=== PATIENT | male | born 1950 | race Two or more races ===

== ENCOUNTER 2020-01-23 06:07 | Inpatient (IN) | payer MEDICARE, MEDICAID ==
[2020-01-23] VITALS (18 sets, daily range): BP systolic 112–137; BP diastolic 67–97
[~2020-01-23] VITALS: Ht 169 cm; Wt 88.5 kg
[~2020-01-23 06:07] MED LIST: DEXILANT60 MG ORAL; FLOMAX0.4 MG ORAL; KLONOPIN1 MG ORAL; ceFAZolin 1gm IVPB IVPB ONE; celeBREX 200mg Cap **SURGERY PATIENTS ONLY ORAL ONE; oxyCONTIN 10mg tab ORAL ONE
[2020-01-23] MEDS ORDERED: Lidocaine 1% MPF 10mg/ml 5ml ONE (06:59)
[2020-01-23] MEDS ORDERED: Ropivacaine 5mg/ml Vial 20ml INJ ONE (07:03)
--- NOTE | 2020-01-23 07:08 | Pre-Procedure Note/Attestation ---
Pre-Procedure Note/Attestation Complete Prior to Procedure Planned Procedure: left Procedure Narrative: left total knee arthroplasty Indications for Procedure Pre-Operative Diagnosis: left knee arthritis Attestation I attest that I discussed the nature of the procedure; its benefits; risks and complications; and alternatives (and the risks and benefits of such alternatives ), prior to the procedure, with the patient (or the patient's legal pharmaceutical specialty representative). I attest that, if there was a reasonable possibility of needing a blood transfusion, the patient (or the patient's legal pharmaceutical specialty representative) was given the [facility] standardized written summary, pursuant to the Corwin Binh Blood Safety Act ([place] Health and Safety Code # 1645, as amended). I attest that I re-evaluated the patient just prior to the surgery and that there has been no change in the patient's H&P, except as documented below: NONE Yoel Bailey MD Jan 23, 2020 07:08
[2020-01-23] MEDS ORDERED: Midazolam 2mg/2ml Inj ONE (07:13)
[2020-01-23] MEDS ORDERED: fentaNYL 100 mcg/2 mL IV ONE (07:13)
[2020-01-23] MEDS ORDERED: Bacitracin 50000 Units Vial ONE (07:30)
[2020-01-23] MEDS ORDERED: NeoSporin Gu Irrig 1ml Amp IRRIG ONE (07:30)
[2020-01-23] MEDS ORDERED: Tranexamic Acid 500 MG in NS 55 ML IV ONE (07:45)
--- NOTE | 2020-01-23 08:11 | Anethesia Preoperative Eval ---
Anesthesia Pre-op PMH/ROS General Date of Evaluation: Jan 23, 2020 Time of Evaluation: 08:06 Anesthesiologist: Cong ASA Score: ASA 3 Mallampati Score Class I : Soft palate, uvula, fauces, pillars visible Class II: Soft palate, uvula, fauces visible Class III: Soft palate, base of uvula visible Class IV: Only hard plate visible Mallampati Classification: Class II Surgeon: Lynn Diagnosis: L knee DJD Surgical Procedure: L knee arthroplasty Anesthesia History: none Family History: no anesthesia problems Allergies: Coded Allergies: No Known Allergies (Unverified , 01/19/20) Medications: see eMAR Patient NPO?: Yes Past Medical History Cardiovascular: Reports: HTN - borderline; Denies: CAD, UT, valve dz, arrhythmia, other Pulmonary: Denies: asthma, COPD, DANIELLE, other Gastrointestinal/Genitourinary: Reports: GERD, other - BPH s/p Sx, kidney stones; Denies: CRI, ESRD Neurologic/Psychiatric: Reports: depression/anxiety; Denies: dementia, CVA, TIA, other Endocrine: Denies: DM, hypothyroidism, steroids, other HEENT: Reports: cataract (L), cataract (R) - s/p Sx; Denies: glaucoma, ALGAACIQ (L), ALGAACIQ (R), other Hematology/Immune: Denies: anemia, DVT, bleeding disorder, other Musculoskeletal/Integumentary: Reports: OA, DJD; Denies: RA, DDD, edema, other Other: other - overweight PMH Narrative: as above PSxH Narrative: TUPR, lithotripsy Anesthesia Pre-op Phys. Exam Physician Exam Last Vital Signs Date Time Temp Pulse Resp B/P (MAP) Pulse Ox O2 Delivery O2 Flow Rate FiO2 01/23/20 06:54 Room Air 01/23/20 06:43 97.8 71 18 137/82 (100) 97 Constitutional: NAD Neurologic: CN 2-12 intact Cardiovascular: RRR, no M/R/G Respiratory: CTA Gastrointestinal: other - obesity Airway Exam Mallampati Score: Class II MO: limited Neck: stiff ROM: limited Teeth: missing Dentures: no upper, no lower Anesthesia Pre-op A/P Labs see chart Studies Pre-op Studies: EKG - SR Risk Assessment & Plan Assessment: ASA 2 Plan: SAB vs GA with femoral nerve block Status Change Before Surgery: No Pre-Antibiotics Drug: Ancef 2gr. Given Within 1 Hr of Incision: Yes Time Given: 08:50 Irving Gar MD Jan 23, 2020 08:11
[2020-01-23] MEDS ORDERED: Tranexamic Acid 100 ML IVPB ONE (08:30)
[2020-01-23] MEDS ORDERED: NS Irrig 1000ml ONE (08:30)
[2020-01-23] MEDS ORDERED: Sterile Water Irrig 1000ml IRRIG ONE (08:30)
[2020-01-23] MEDS ORDERED: LR 1000ml ONE (08:30)
[2020-01-23] MEDS ORDERED: LR 1000ml 1,000 ML IVLG SCH (09:29)
[2020-01-23] MEDS ORDERED: Ketorolac 30mg Inj IV PRN (09:30)
[2020-01-23] MEDS ORDERED: Acetaminophen (Non formulary) 100 ML IV ONE (09:30)
[2020-01-23] MEDS ORDERED: Hydromorphone 0.5mg/0.5ml inj IVP PRN (09:30)
[2020-01-23] MEDS ORDERED: Milk of Magnesia 30ml Ud ORAL PRN (09:45)
[2020-01-23] MEDS ORDERED: NS Irrig 2000ml IRRIG ONE (09:53)
--- NOTE | 2020-01-23 11:17 | Brief Operative Note ---
Immediate Post Operative Note Operative Note Chief Complaint: left knee pain Pre-op Diagnosis: left knee arthritis Procedure: left total knee arthroplasty Post-op Diagnosis: same as pre-op Findings: consistent w/pre-op dx studies Surgeon: md sydnee Web Operations Manager: bridget lubin Anesthesiologist: md katelyn Anesthesia: general Specimen: yes Complications: none Condition: stable Fluids: ns Estimated Blood Loss: minimal Drains: none Implant(s) used?: Yes - Yoel Pollack MD Jan 23, 2020 11:17
--- NOTE | 2020-01-23 11:32 | Immediate Post-Op Evaluation ---
Immediate Post-Op Evalulation Immediate Post-Op Evalulation Procedure: L knee arthroplasty Date of Evaluation: Jan 23, 2020 Time of Evaluation: 11:30 IV Fluids: 1200 Blood Products: none Estimated Blood Loss: 150 Urinary Output: 300 Blood Pressure Systolic: 125 Blood Pressure Diastolic: 82 Pulse Rate: 58 Respiratory Rate: 18 O2 Sat by Pulse Oximetry: 99 Temperature (Fahrenheit): 98.1 Pain Score (1-10): 1 Nausea: No Vomiting: No Complications none Patient Status: reacts, patent, none Hydration Status: adequate Irving Gar MD Jan 23, 2020 11:32
--- NOTE | 2020-01-23 12:40 | NUR ---
NURSE NOTES: PATIENT RECEIVED FROM PACU ON BED. AROUSABLE TO NAME. O2 ON VIA NC. RR EVENLY SPACED; SKIN W/D. NO RESPIRATORY DISTRESS NOTED. LEFT KNEE SURGICAL SITE C/D/I WITH KNEE IMMOBILIZER ON AND ICE PACK APPLIED. PATIENT IS ABLE TO FEEL SOME SENSATION UPON TOUCH TO LEFT GREAT TOE. BEDSIDE REPORT RECEIVED. BED IN LOW AND LOCKED POSITION. BED ALARM ACTIVATED. PATIENT ORIENTED TO ROOM. CALL LIGHT IN HAND.
[2020-01-23] MEDS: Docusate 100mg cap ORAL SCH ×2 (13:00→17:27)
[2020-01-23] MEDS: HYDROmorphone 1mg/ml Carpuject SUBQ PRN (13:30)
--- NOTE | 2020-01-23 14:35 | NUR ---
NURSE NOTES: PLACED CALL TO DR. GOMEZ OFFICE TO INFORM PATIENT ARRIVED TO 3 EAST TO ROOM 311-1. PER OFFICE, MD TO SEE PATIENT THIS EVENING AFTER OFFICE VISITS.
--- NOTE | 2020-01-23 14:38 | NUR ---
PT CPM SET UP NOTE Patient seen for LLE CPM setup per MD order 0-60 degrees flexion with good alignment. Patient instructed in use of control box. Patient rates L knee pain at 4/10, medicated earlier for pain. Lalitha PERRY notified. Will progress with OOB activities tomorrow.
[2020-01-23] MEDS: D5 1/2NS w/KCl 20mEq 1,000 ML IV SCH (15:20)
--- NOTE | 2020-01-23 15:44 | Operative Note - Dictated ---
DATE OF OPERATION: 01/23/2020 PREOPERATIVE DIAGNOSIS: Left knee end-stage arthritis. POSTOPERATIVE DIAGNOSIS: Left knee end-stage arthritis. PROCEDURE: Left total knee arthroplasty using Loree Triathlon System, size 5 cruciate-retaining Triathlon femur, size 5 tibial base plate, 9 mm ultra cross-linked poly and 31 mm all-poly patella component, all cemented. SURGEON: Yoel Bailey MD. METAL ROOFER: Rosalind Timmons PA-C. ANESTHESIOLOGIST: Irving Gar MD. ANESTHESIA: Spinal anesthesia combined with femoral nerve block for postoperative pain management. ESTIMATED BLOOD LOSS: Less than 20 mL. COMPLICATIONS: None. BRIEF HISTORY: The patient is a pleasant 70-year-old gentleman, who has had ongoing left knee end-stage arthritis. He has pain of the medial, lateral and at the patellofemoral joint. After he failed nonoperative treatment, he opted for surgical treatment. Risks and benefits of the surgery including infection, bleeding, neurovascular complication, possibility of continued pain, possible need for revision surgery, possible resection arthroplasty, possible need for further surgery down the line, DVT, PEs, stiffness, pain, loss of motion, and other complication was discussed and he understood and agreed to proceed with surgical intervention. OPERATIVE PROCEDURE: The patient was brought to the operating room table and was placed supine. All pressure points were well padded. Spinal anesthesia was induced and a femoral nerve block was performed. The left leg was prepped and draped in usual sterile fashion and a time-out was performed and tranexamic acid and preop antibiotics were given. The left leg was exsanguinated. Tourniquet was inflated to 275 mmHg. A standard anterior incision was made over the knee. The subcutaneous tissue was dissected and medial parapatellar arthrotomy was performed. The deep fibers of the MCL were released. The patella was then everted and knee was flexed. The fat pad was removed and ACL and PCL were resected. Intramedullary access into the femur was obtained. Using the intramedullary guide, 5-degree valgus distal femoral cut was performed. Once this was completed, sizing was performed and size 5 femur appeared to be the right size. The femoral cutting guide was placed in 3 degrees external rotation and anterior, posterior, and chamfer cuts were performed without any complication. Once this was completed, a trial femur was applied and slightly lateralized and peg holes were drilled. At this point, care was given to the tibia. An anterior tibial crest was palpated. The anatomical axis was recreated. A posterior slope of the tibia was recreated. The retractors were placed medial, caudally and posteriorly to protect the vital structure. Once this was completed, the anatomical axis and slope was recreated, 4 mm was taken off the most involved side, which was the medial side. Flexion-extension gap was checked and appeared to be perfect and stable at 90 degrees as well as in full extension. At this point, all wounds were thoroughly irrigated. Sizing of the tibia was performed and size 5 appeared to be the right size. The tibia was placed about 3 degrees external rotation and was drilled and punched. At this point, care was given to the patella. The patella was everted. The thickness of the patella was checked and appeared to be 24 mm. At this point, a freehand cut of the patella was performed and 14 mm was remaining. Measurements were made and 31 mm patellar trial component was applied, appeared to be a good fit. At this point, all trial components were applied and range of motion was checked. There was full extension, full flexion. There was excellent stability at 0, 30 degrees, 45 degrees, and 90 degrees of flexion. The range of motion was excellent. The patellofemoral tracking was great and there was no subluxation or tension on the lateral side. At this point, all trial components were removed and knee was thoroughly irrigated using copious amount of fluid. The cement was mixed and the knee was completely dried and cement was then applied on the tibia, femur and patella and all components were then applied and cemented in compression without any complication. All excess cement was removed. At this point, a 9 mm poly was then inserted and locked in without any complication. Prior to applying the poly, the knee was thoroughly irrigated and the tray was completely washed out and dried. Once the tibial poly was locked in onto the tray, the range of motion and stability of the patellofemoral tracking was checked and appeared to be excellent as described previously. The wounds were thoroughly irrigated using copious amount of fluid with Simpulse irrigation. The tourniquet was deflated and there was minimal bleeding that was stopped. The extensor mechanism was then closed using #1 Vicryl [id number] sutures. Subcutaneous tissue was closed using 2-0 Vicryl suture and skin was closed using 3-0 Monocryl suture. All lap counts and instrument counts were correct. The wound was closed using Dermabond and sterile dressing was applied. The patient was taken to recovery room in stable condition. Yoel Bailey M.D. DR: FORTINO JOB#: [id number] CC: MICHELLE
--- NOTE | 2020-01-23 16:10 | Diagnostic Imaging Report ---
Indications: Postoperative Technique: Two views of the left knee Comparison: None Findings: Two postoperative views of the left knee demonstrate total knee arthroplasty, good anatomic alignment of the prosthesis. . There is postsurgical soft tissue air. Impression: Postoperative left knee, no unusual features.
--- NOTE | 2020-01-23 16:50 | General Progress Note ---
Assessment/Plan Status: stable Assessment/Plan: 1. Osteoarthritis of left knee s/p Arthroplasty - cont pain management. 2. BPH - cont flomax 0.4 mg one po qhs and proscar 3. constipation - cont senna two po daily and milk of mag. 4. Anxiety disorder - cont clonazepam 2 mg one po qhs. Subjective Date patient seen: Jan 23, 2020 Time patient seen: 04:30 Constitutional: Reports: no symptoms HEENT: Reports: no symptoms Cardiovascular: Reports: no symptoms Respiratory: Reports: no symptoms Gastrointestinal/Abdominal: Reports: no symptoms Genitourinary: Reports: no symptoms Neurologic/Psychiatric: Reports: no symptoms Endocrine: Reports: no symptoms Hematologic/Lymphatic: Reports: no symptoms Allergies: Coded Allergies: No Known Allergies (Unverified , 01/19/20) Subjective He is s/p Lt knee artheroplasty today. his pain is controlled with pain meds today. afebrile. no sob or chest pain. Objective Last 24 Hour Vital Signs Date Time Temp Pulse Resp B/P (MAP) Pulse Ox O2 Delivery O2 Flow Rate FiO2 01/23/20 16:00 97.6 55 18 113/77 (89) 97 01/23/20 15:20 97.5 58 20 114/78 (90) 97 01/23/20 14:50 97.5 54 18 130/97 (108) 95 01/23/20 14:04 97.0 56 18 118/82 (94) 95 01/23/20 14:00 97.0 01/23/20 13:25 97.2 54 20 119/80 (93) 96 01/23/20 13:10 97.2 54 17 119/75 (90) 97 01/23/20 12:55 97.5 50 17 119/74 (89) 96 01/23/20 12:40 97.5 59 16 130/67 (88) 97 01/23/20 12:40 Nasal Cannula 3.0 01/23/20 12:25 97.1 52 15 131/78 99 Nasal Cannula 3 01/23/20 12:15 54 15 112/75 99 Nasal Cannula 3 01/23/20 12:00 54 12 118/79 98 Nasal Cannula 3 01/23/20 11:50 54 16 127/81 98 Simple Mask 6 01/23/20 11:40 56 13 131/82 98 Simple Mask 6 01/23/20 11:35 54 15 114/77 98 Simple Mask 6 01/23/20 11:32 58 18 99 01/23/20 11:30 55 18 120/78 98 Simple Mask 6 01/23/20 11:25 98.0 58 17 125/81 98 Simple Mask 6 01/23/20 06:54 Room Air 01/23/20 06:43 97.8 71 18 137/82 (100) 97 Intake and Output 01/22/20 01/23/20 19:00 07:00 # Voids 1 Height (Feet): 5 Height (Inches): 6.54 Weight (Pounds): 194 General Appearance: no apparent distress, alert EENT: normal ENT inspection Neck: non-tender, supple Cardiovascular: normal rate, regular rhythm Respiratory/Chest: chest wall non-tender, lungs clear Abdomen: non tender, soft, hyperactive bowel sounds Extremities: non-tender Edema: no edema noted Leg (R) Neurologic: alert, oriented x 3, responsive Skin: warm/dry Ajith Schumacher MD Jan 23, 2020 16:50
--- NOTE | 2020-01-23 17:13 | NUR ---
NURSE NOTES: PATIENT TOLERATING CPM TO LLE. RESTING COMFORTABLY IN BED. VSS. AFEBRILE. BED IN LOW AND LOCKED POSITION WITH BED ALARM ON. CALL LIGHT WITHIN REACH.
[2020-01-23] MEDS: ceFAZolin sod 1 GM in D5W 55 ML IV SCH (17:24)
[2020-01-23] MEDS: Tamsulosin 0.4mg cap ORAL SCH (17:27)
[2020-01-23] MEDS ORDERED: Sennosides 8.6mg tab ORAL SCH (18:00)
--- NOTE | 2020-01-23 19:37 | NUR ---
NURSE HAND-OFF: Important Events on Shift:NONE Patient Status: STABLE Diet: REGULAR Pending Orders: NONE Pending Results/Labs:NONE Pending MD notification:NONE Latest Vital Signs: Temperature 97.6 , Pulse 55 , B/P 113 /77 , Respiratory Rate 18 , O2 SAT 97 , Nasal Cannula, O2 Flow Rate 3.0 . Vital Sign Comment: N/A Latest De La O Fall Score: 15 Fall Risk: Low Risk Safety Measures: Call light Within Reach, Bed Alarm Zone 1, Side Rails Side Rails x3, Bed position Low and Locked. Fall Precautions: Door Sign Patient Fall Education Report given to ALEXANDRA FOSS RN.
--- NOTE | 2020-01-23 19:38 | NUR ---
NURSE NOTES: Received report from Kelechi RN. Rounding is done. Patient is a/ox4. Denied any pain at this time. NO any distress noted at this time. Breathing is even and unlabored. Patient void at this time; 300ml and will continue to monitor. IV site is intact and iv fluid is running. Surgical Dressing is c/d/i. CPM removed and applied immobilizer helping by Kelechi. Bed is on alarm, locked, and lowest position. Call light within reach. Will continue to monitor.
[2020-01-24] VITALS: BP 113/74
[2020-01-24] MEDS: ceFAZolin sod 1 GM in D5W 55 ML IV SCH (01:04)
[2020-01-24] MEDS: HYDROmorphone 1mg/ml Carpuject SUBQ PRN ×2 (01:04→05:52)
[2020-01-24] MEDS: D5 1/2NS w/KCl 20mEq 1,000 ML IV SCH ×3 (02:20→16:56)
[2020-01-24 04:00] VITALS: BP 107/66
[2020-01-24 05:36] LABS: BASOPHILS % (AUTO) 0.6 % (0.0-2.0); EOSINOPHILS % (AUTO) 0.7 % (0.0-3.0); HEMATOCRIT 44.3 % (42.0-52.0); HEMOGLOBIN 14.5 G/DL (14.2-18.0); LYMPHOCYTES % (AUTO) 16.7 % (20.0-45.0); MEAN CORPUSCULAR VOLUME 92 FL (80-99); MONOCYTES % (AUTO) 9.4 % (1.0-10.0); NEUTROPHILS % (AUTO) 72.6 % (45.0-75.0); PLATELET COUNT 125 K/UL (150-450); RED BLOOD COUNT 4.81 M/UL (4.70-6.10); RED CELL DISTRIBUTION WIDTH 11.7 % (11.6-14.8); WHITE BLOOD COUNT 6.2 K/UL (4.8-10.8)
--- NOTE | 2020-01-24 07:27 | NUR ---
NURSE NOTES: WALKING ROUNDS DONE WITH NIGHT RN. PATIENT ASLEEP BUT AROUSABLE TO NAME. SET-UP FOR BREAKFAST. LEFT KNEE SURGICAL SITE REMAINS C/D/I WITH IMMOBILIZER ON. PATIENT STATES TO HAVE MODERATE PAIN. QUESTIONS ANSWERED NEEDS MET THIS A.M. DISCUSSED PLAN OF CARE FOR TODAY. PATIENT VERBALIZED UNDERSTANDING. BED IN LOW AND LOCKED POSITION. CALL LIGHT WITHIN REACH. BED ALARM ON WITH PERSONAL ITEMS WITHIN ARM'S REACH.
--- NOTE | 2020-01-24 07:30 | NUR ---
NURSE HAND-OFF: Important Events on Shift:[POST-OP] Patient Status: [STABLE] Diet: [REGULAR] Pending Orders: [NONE] Pending Results/Labs:[NONE] Pending MD notification:[NONE] Latest Vital Signs: Temperature 99.2 , Pulse 74 , B/P 107 /66 , Respiratory Rate 18 , O2 SAT 95 , Room Air, O2 Flow Rate 3.0 . Vital Sign Comment: [STABLE] Latest De La O Fall Score: 15 Fall Risk: Low Risk Safety Measures: Call light Within Reach, Bed Alarm Zone 1, Side Rails Side Rails x3, Bed position Low and Locked. Fall Precautions: Door Sign Patient Fall Education Report given to [JENNIFER RN].
--- NOTE | 2020-01-24 08:04 | Orthopedic Progress Note ---
Orthopedic - Progress Note Subjective Symptoms: c/o post-op knee pain Objective Laboratory Tests Test 01/24/20 04:55 White Blood Count 6.2 K/UL (4.8-10.8) Red Blood Count 4.81 M/UL (4.70-6.10) Hemoglobin 14.5 G/DL (14.2-18.0) Hematocrit 44.3 % (42.0-52.0) Mean Corpuscular Volume 92 FL (80-99) Mean Corpuscular Hemoglobin 30.2 PG (27.0-31.0) Mean Corpuscular Hemoglobin Concent 32.8 G/DL (32.0-36.0) Red Cell Distribution Width 11.7 % (11.6-14.8) Platelet Count 125 K/UL (150-450) L Mean Platelet Volume 7.1 FL (6.5-10.1) Neutrophils (%) (Auto) 72.6 % (45.0-75.0) Lymphocytes (%) (Auto) 16.7 % (20.0-45.0) L Monocytes (%) (Auto) 9.4 % (1.0-10.0) Eosinophils (%) (Auto) 0.7 % (0.0-3.0) Basophils (%) (Auto) 0.6 % (0.0-2.0) Last 24 Hour Vital Signs Date Time Temp Pulse Resp B/P (MAP) Pulse Ox O2 Delivery O2 Flow Rate FiO2 01/24/20 04:00 99.2 74 18 107/66 (80) 95 01/24/20 00:00 98.6 64 18 113/74 (87) 95 01/23/20 21:00 Room Air 01/23/20 20:00 98.6 66 18 114/77 (89) 95 01/23/20 16:00 97.6 55 18 113/77 (89) 97 01/23/20 15:20 97.5 58 20 114/78 (90) 97 01/23/20 14:50 97.5 54 18 130/97 (108) 95 01/23/20 14:04 97.0 56 18 118/82 (94) 95 01/23/20 14:00 97.0 01/23/20 13:25 97.2 54 20 119/80 (93) 96 01/23/20 13:10 97.2 54 17 119/75 (90) 97 01/23/20 12:55 97.5 50 17 119/74 (89) 96 01/23/20 12:40 97.5 59 16 130/67 (88) 97 01/23/20 12:40 Nasal Cannula 3.0 01/23/20 12:25 97.1 52 15 131/78 99 Nasal Cannula 3 01/23/20 12:15 54 15 112/75 99 Nasal Cannula 3 01/23/20 12:00 54 12 118/79 98 Nasal Cannula 3 01/23/20 11:50 54 16 127/81 98 Simple Mask 6 01/23/20 11:40 56 13 131/82 98 Simple Mask 6 01/23/20 11:35 54 15 114/77 98 Simple Mask 6 01/23/20 11:32 58 18 99 01/23/20 11:30 55 18 120/78 98 Simple Mask 6 01/23/20 11:25 98.0 58 17 125/81 98 Simple Mask 6 Intake and Output 01/23/20 01/24/20 19:00 07:00 Intake Total 2096 ml 750 ml Output Total 450 ml Balance 1646 ml 750 ml Intake Oral 416 ml IV Total 1680 ml 750 ml Output Urine Total 300 ml Estimated Blood Loss 150 ml Laboratory Tests Test 01/24/20 04:55 White Blood Count 6.2 K/UL (4.8-10.8) Red Blood Count 4.81 M/UL (4.70-6.10) Hemoglobin 14.5 G/DL (14.2-18.0) Hematocrit 44.3 % (42.0-52.0) Mean Corpuscular Volume 92 FL (80-99) Mean Corpuscular Hemoglobin 30.2 PG (27.0-31.0) Mean Corpuscular Hemoglobin Concent 32.8 G/DL (32.0-36.0) Red Cell Distribution Width 11.7 % (11.6-14.8) Platelet Count 125 K/UL (150-450) L Mean Platelet Volume 7.1 FL (6.5-10.1) Neutrophils (%) (Auto) 72.6 % (45.0-75.0) Lymphocytes (%) (Auto) 16.7 % (20.0-45.0) L Monocytes (%) (Auto) 9.4 % (1.0-10.0) Eosinophils (%) (Auto) 0.7 % (0.0-3.0) Basophils (%) (Auto) 0.6 % (0.0-2.0) Wound: clean, dry, intact Drains: none Neuro Status: normal Vascular Status: normal Additional Comments xray excellent Assessment Post-op Diagnosis POD 1 left total knee arthroplasty Plan Plan: PT, pain management, discharge plan - possibly home tomorrow vs wednesday with services and DME Rosalind Timmons Jan 24, 2020 08:04
[2020-01-24 08:12] VITALS: BP 108/70
--- NOTE | 2020-01-24 08:32 | 48 Hour Post Anesthesia Eval ---
Post Anesthesia Evaluation Procedure: L knee arthroplasty Date of Evaluation: Jan 24, 2020 Time of Evaluation: 08:31 Blood Pressure Systolic: 107 0: 66 Pulse Rate: 74 Respiratory Rate: 18 Temperature (Fahrenheit): 99.2 O2 Sat by Pulse Oximetry: 95 Airway: patent Nausea: No Vomiting: No Pain Intensity: 3 Hydration Status: adequate Cardiopulmonary Status: Stable Mental Status/LOC: patient returned to baseline Follow-up Care/Observations: 0 Post-Anesthesia Complications: 0 Follow-up care needed: N/A Jones Alejandro MD Jan 24, 2020 08:32
--- NOTE | 2020-01-24 08:35 | General Progress Note ---
Assessment/Plan Status: stable Assessment/Plan: 1. Osteoarthritis of left knee s/p Arthroplasty - cont pain management. probable D/C planning for tomorrow. 2. BPH - cont flomax 0.4 mg one po qhs and proscar 3. constipation - cont senna two po daily and milk of mag and colace. 4. Anxiety disorder - cont clonazepam 2 mg one po qhs. Subjective Date patient seen: Jan 24, 2020 Time patient seen: 08:30 Constitutional: Reports: weakness HEENT: Reports: no symptoms Cardiovascular: Reports: no symptoms Respiratory: Reports: no symptoms Gastrointestinal/Abdominal: Reports: constipated Genitourinary: Reports: no symptoms Neurologic/Psychiatric: Reports: no symptoms Endocrine: Reports: no symptoms Hematologic/Lymphatic: Reports: no symptoms Allergies: Coded Allergies: No Known Allergies (Unverified , 01/19/20) Subjective He is post op day two for lt knee arthroplasty. his pain is is better controlled today. He ate breakfast. afebrile. no sob or chest pain. Objective Last 24 Hour Vital Signs Date Time Temp Pulse Resp B/P (MAP) Pulse Ox O2 Delivery O2 Flow Rate FiO2 01/24/20 08:12 99.3 77 16 108/70 (83) 97 01/24/20 04:00 99.2 74 18 107/66 (80) 95 01/24/20 00:00 98.6 64 18 113/74 (87) 95 01/23/20 21:00 Room Air 01/23/20 20:00 98.6 66 18 114/77 (89) 95 01/23/20 16:00 97.6 55 18 113/77 (89) 97 01/23/20 15:20 97.5 58 20 114/78 (90) 97 01/23/20 14:50 97.5 54 18 130/97 (108) 95 01/23/20 14:04 97.0 56 18 118/82 (94) 95 01/23/20 14:00 97.0 01/23/20 13:25 97.2 54 20 119/80 (93) 96 01/23/20 13:10 97.2 54 17 119/75 (90) 97 01/23/20 12:55 97.5 50 17 119/74 (89) 96 01/23/20 12:40 97.5 59 16 130/67 (88) 97 01/23/20 12:40 Nasal Cannula 3.0 01/23/20 12:25 97.1 52 15 131/78 99 Nasal Cannula 3 01/23/20 12:15 54 15 112/75 99 Nasal Cannula 3 01/23/20 12:00 54 12 118/79 98 Nasal Cannula 3 01/23/20 11:50 54 16 127/81 98 Simple Mask 6 01/23/20 11:40 56 13 131/82 98 Simple Mask 6 01/23/20 11:35 54 15 114/77 98 Simple Mask 6 01/23/20 11:32 58 18 99 01/23/20 11:30 55 18 120/78 98 Simple Mask 6 01/23/20 11:25 98.0 58 17 125/81 98 Simple Mask 6 Intake and Output 01/23/20 01/24/20 19:00 07:00 Intake Total 2096 ml 750 ml Output Total 450 ml Balance 1646 ml 750 ml Intake Oral 416 ml IV Total 1680 ml 750 ml Output Urine Total 300 ml Estimated Blood Loss 150 ml Laboratory Tests 01/24/20 04:55: White Blood Count 6.2, Red Blood Count 4.81, Hemoglobin 14.5, Hematocrit 44.3, Mean Corpuscular Volume 92, Mean Corpuscular Hemoglobin 30.2, Mean Corpuscular Hemoglobin Concent 32.8, Red Cell Distribution Width 11.7, Platelet Count 125L, Mean Platelet Volume 7.1, Neutrophils (%) (Auto) 72.6, Lymphocytes (%) (Auto) 16.7L, Monocytes (%) (Auto) 9.4, Eosinophils (%) (Auto) 0.7, Basophils (%) (Auto ) 0.6 Height (Feet): 5 Height (Inches): 6.54 Weight (Pounds): 195 General Appearance: alert EENT: normal ENT inspection Neck: non-tender, supple Cardiovascular: normal rate, regular rhythm Respiratory/Chest: lungs clear, normal breath sounds Abdomen: non tender, soft Extremities: normal inspection Neurologic: alert, responsive Skin: warm/dry Ajith Schumacher MD Jan 24, 2020 08:34
[2020-01-24] MEDS: Sennosides 8.6mg tab ORAL SCH (09:25)
[2020-01-24] MEDS: Tamsulosin 0.4mg cap ORAL SCH (09:25)
[2020-01-24] MEDS: Docusate 100mg cap ORAL SCH ×3 (09:25→16:58)
[2020-01-24] MEDS: celeBREX 200mg Cap **SURGERY PATIENTS ONLY ORAL SCH (09:26)
[2020-01-24] MEDS: HYDROcodone/Acetamin 5/325 tab ORAL PRN ×2 (09:26→15:04)
--- NOTE | 2020-01-24 10:25 | NUR ---
PT EVALUATION NOTE Patient seen for initial evaluation and treatment initiated. Patient presents with impaired functional mobility and L knee pain s/p L TKA. Patient requires mod/max assist for bed mobility. Patient requires max assist for sit <-> stand transfers with FWW. Patient only able to take a few sideways steps, unable to ambulate at this time due to pain. Patient will benefit from skilled inpatient PT intervention to increase strength and postural stability for improved level of functional mobility and safety. Anticipate discharge home with home PT once medically cleared by MD. Patient has FWW at home, recommend raised toilet seat for toilet transfers. Addendum: 01/24/20 at 1222 by MAURISIO STEINBERG PT Amended: Links added.
[2020-01-24 12:00] VITALS: BP 115/68
--- NOTE | 2020-01-24 13:29 | NUR ---
Discharge planning patient referred to [facility] t:[phone] f:[phone] [facility] t:[phone] f:[phone] [facility] t:[phone] f:[phone] Addendum: 01/24/20 at 1331 by RUBI YANG LVN [place] unable to accept Addendum: 01/24/20 at 1340 by RUBI YANG LVN [facility] unable to accept; no nurses, s/w Natalya Addendum: 01/24/20 at 1435 by RUBI YANG LVN [facility] UNABLE TO ACCEPT Addendum: 01/24/20 at 1507 by RUBI YANG LVN NOTE MADE IN ERROR
[2020-01-24] MEDS ORDERED: Tubing IV Secondary IV ONE (14:10)
--- NOTE | 2020-01-24 14:35 | NUR ---
CASE MANAGEMENT: INITIAL REVIEW 70YR OLD MALE HERE FOR SCHEDULE SURGERY CC:LEFT KNEE PAIN; DJD SI:LEFT DJD 97.8 71 18 137/82 97% ON RA IS:IN SURG NOW FOR LEFT KNEE ARTHROPLASTY \: 3E MED SURG UNIT DCP: HOME WHEN STABLE CASE MANAGEMENT: REVIEW 01/24/20 SI:S/P LEFT KNEE ARTHROPLASTY 99.3 71 20 115/68 96% ON RA PLT 125 IS:NORCO PO Q4HR/PRN ASA PO BID IV D5@75ML/HR FEOSOL PO TID \: 3E MED SURG UNIT DCP: HOME WHEN STABLE
--- NOTE | 2020-01-24 15:07 | NUR ---
Discharge planning Patient referred to Bennie [facility] T: [phone] F:[phone]
--- NOTE | 2020-01-24 15:09 | NUR ---
NURSE NOTES: Patient on CPM machine and complained too much pain on Left knee. Patient requested to removed CPM machine. CPM machine removed and given pain medication as ordered. Will continue to monitor.
--- NOTE | 2020-01-24 15:11 | NUR ---
Discharge planned Patient accepted to [facility] T: [phone] F:[phone] Confirm by Patience
--- NOTE | 2020-01-24 15:37 | NUR ---
Discharge planned: Patient accepted to [facility] T: [phone] Addendum: 01/24/20 at 1546 by RUBI YANG LVN Patient set up by Dr Bailey office
[2020-01-24 16:00] VITALS: BP 140/89
--- NOTE | 2020-01-24 19:41 | NUR ---
NURSE HAND-OFF: Important Events on Shift:NONE Patient Status: STABLE Diet: REGULAR Pending Orders: NONE Pending Results/Labs:NONE Pending MD notification:NONE Latest Vital Signs: Temperature 98.9 , Pulse 68 , B/P 140 /89 , Respiratory Rate 20 , O2 SAT 94 , Room Air, O2 Flow Rate 3.0 . Vital Sign Comment: [] Latest De La O Fall Score: 50 Fall Risk: High Risk Safety Measures: Call light Within Reach, Bed Alarm Zone 1, Side Rails Side Rails x3, Bed position Low and Locked. Fall Precautions: Yellow Socks Door Sign Patient Fall Education Report given to JAMES ALFARO RN
[2020-01-24 20:00] VITALS: BP 123/91
--- NOTE | 2020-01-24 20:00 | NUR ---
NURSES NOTE: Met pt in bed, A/OX4, denies pain currently. No outward s/s of distress noted. Breathing pattern is even and unlabored on RA. IV intact, patent, running IVF fluids without incident. L knee bandage is clean dry intact. Pt refuses ice bag applied to L knee; however towel roll placed under L heel. All due meds will be given. Bed at lowest level, call light within reach. Pt will continue to be monitored.
[2020-01-25] VITALS: BP 123/68
[2020-01-25 04:00] VITALS: BP 141/90
[2020-01-25] MEDS: D5 1/2NS w/KCl 20mEq 1,000 ML IV SCH (05:13)
[2020-01-25] MEDS: HYDROcodone/Acetamin 7.5/325 tab ORAL PRN (05:14)
[2020-01-25 05:41] LABS: BASOPHILS % (AUTO) 0.4 % (0.0-2.0); EOSINOPHILS % (AUTO) 0.4 % (0.0-3.0); HEMOGLOBIN 14.8 G/DL (14.2-18.0); LYMPHOCYTES % (AUTO) 7.6 % (20.0-45.0); MEAN CORPUSCULAR VOLUME 91 FL (80-99); MONOCYTES % (AUTO) 7.7 % (1.0-10.0); NEUTROPHILS % (AUTO) 83.9 % (45.0-75.0); PLATELET COUNT 124 K/UL (150-450); RED BLOOD COUNT 4.82 M/UL (4.70-6.10); RED CELL DISTRIBUTION WIDTH 11.7 % (11.6-14.8); WHITE BLOOD COUNT 8.1 K/UL (4.8-10.8)
[2020-01-25 06:04] LABS: ANION GAP 4 mmol/L (5-15); BLOOD UREA NITROGEN 12 mg/dL (7-18); CALCIUM 8.1 MG/DL (8.5-10.1); CARBON DIOXIDE 27 MMOL/L (21-32); CHLORIDE 106 MMOL/L (98-107); CREATININE 0.7 MG/DL (0.55-1.30); POTASSIUM 4.2 MMOL/L (3.5-5.1); SODIUM 137 MMOL/L (136-145)
--- NOTE | 2020-01-25 07:29 | Orthopedic Progress Note ---
Orthopedic - Progress Note Subjective Symptoms: c/o post-op knee pain Objective Last 24 Hour Vital Signs Date Time Temp Pulse Resp B/P (MAP) Pulse Ox O2 Delivery O2 Flow Rate FiO2 01/25/20 04:00 99.6 82 18 141/90 (107) 94 01/25/20 00:00 98.8 76 19 123/68 (86) 95 01/24/20 22:00 98.7 01/24/20 21:00 Room Air Room Air 01/24/20 20:00 100.0 79 19 123/91 (102) 91 01/24/20 16:00 98.9 68 20 140/89 (106) 94 01/24/20 15:34 99.3 01/24/20 12:00 99.3 71 20 115/68 (84) 96 01/24/20 09:00 Room Air Room Air 01/24/20 08:32 74 18 95 01/24/20 08:12 99.3 77 16 108/70 (83) 97 Intake and Output 01/24/20 01/25/20 19:00 07:00 Intake Total 1620 ml Output Total 400 ml Balance 1220 ml Intake Oral 720 ml IV Total 900 ml Output Urine Total 400 ml Laboratory Tests Test 01/25/20 04:55 White Blood Count 8.1 K/UL (4.8-10.8) Red Blood Count 4.82 M/UL (4.70-6.10) Hemoglobin 14.8 G/DL (14.2-18.0) Hematocrit 44.0 % (42.0-52.0) Mean Corpuscular Volume 91 FL (80-99) Mean Corpuscular Hemoglobin 30.7 PG (27.0-31.0) Mean Corpuscular Hemoglobin Concent 33.7 G/DL (32.0-36.0) Red Cell Distribution Width 11.7 % (11.6-14.8) Platelet Count 124 K/UL (150-450) L Mean Platelet Volume 7.7 FL (6.5-10.1) Neutrophils (%) (Auto) 83.9 % (45.0-75.0) H Lymphocytes (%) (Auto) 7.6 % (20.0-45.0) L Monocytes (%) (Auto) 7.7 % (1.0-10.0) Eosinophils (%) (Auto) 0.4 % (0.0-3.0) Basophils (%) (Auto) 0.4 % (0.0-2.0) Sodium Level 137 MMOL/L (136-145) Potassium Level 4.2 MMOL/L (3.5-5.1) Chloride Level 106 MMOL/L (98-107) Carbon Dioxide Level 27 MMOL/L (21-32) Anion Gap 4 mmol/L (5-15) L Blood Urea Nitrogen 12 mg/dL (7-18) Creatinine 0.7 MG/DL (0.55-1.30) Estimat Glomerular Filtration Rate > 60 mL/min (>60) Glucose Level 145 MG/DL (74-106) H Calcium Level 8.1 MG/DL (8.5-10.1) L Wound: clean, dry Neuro Status: normal Assessment Procedure Performed left total knee arthroplasty Plan Plan: PT, pain management, discharge plan, discharge to home Yoel Bailey MD Jan 25, 2020 07:28
--- NOTE | 2020-01-25 07:35 | NUR ---
NURSE NOTES: RECEIVED PATIENT A/A/OX4 IN BED HIGH MOODY'S POSITION. HAVING BREAKFAST. PATIENT APPEARED TO BE FATIGUED AND SLEEPY. PATIENT STATED THAT HE WAS NOT ABLE TO SLEEP NOT UNTIL 0300. PATIENT ABLE TO UTILIZE IS W/A 10X. SURGICAL DRSG DRY AND INTACT. KNEE IMMOBILIZER INPLACED. IV ACCESS INTACT AND PATENT. REFUSED ICE PACK @ THIS TIME. NO ACUTE CARDIO-RESP DISTRESS NOTED. ABDOMEN IS DISTENDED AND SOFT TO TOUCH. KEPT BED IN THE LOWEST POSITION, SIDERAILS ARE UPX3, CALL LIGHT IS WITHIN REACH. BED BRAKES AND LOCK ENGAGED. WILL CONT THE PLAN OF CARE.
--- NOTE | 2020-01-25 07:40 | NUR ---
HAND OFF: Report given to ORLANDO Grimes. Pt in stable condition.
[2020-01-25 08:00] VITALS: BP 137/85
[2020-01-25] MEDS: Docusate 100mg cap ORAL SCH ×3 (08:20→17:23)
[2020-01-25] MEDS: celeBREX 200mg Cap **SURGERY PATIENTS ONLY ORAL SCH (08:21)
[2020-01-25] MEDS: Tamsulosin 0.4mg cap ORAL SCH (08:21)
[2020-01-25] MEDS: Sennosides 8.6mg tab ORAL SCH (08:21)
--- NOTE | 2020-01-25 08:51 | Discharge Summary ---
Discharge Summary Hospital Course Date of Admission Jan 23, 2020 at 06:07 Date of Discharge 01/26/2020 Admitting Diagnosis left knee arthritis Reason for Hospitalization: s/p left total knee arthroplasty JOHN Moe is a 70 year old male who was admitted on Jan 23, 2020 at 06:07 for Primary Osteoarthritis Of Left Knee Consultations MD Winsome Procedures Left total knee arthroplasty Hospital Course benign Discharge Condition Upon Discharge: improving, stable Discharge Vital Signs Last Vital Signs Date Time Temp Pulse Resp B/P (MAP) Pulse Ox O2 Delivery O2 Flow Rate FiO2 01/25/20 08:13 Room Air Room Air 01/25/20 08:00 98.5 87 20 137/85 (102) 97 01/23/20 12:40 3.0 Discharge Disposition Patient was discharged to home with home health Rosalind Timmons Jan 25, 2020 08:51
--- NOTE | 2020-01-25 09:23 | General Progress Note ---
Assessment/Plan Status: stable Assessment/Plan: 1. Osteoarthritis of left knee s/p Arthroplasty - cont pain management. probable D/C planning for wednesday. 2. BPH - cont flomax 0.4 mg one po qhs and proscar 3. constipation - will give mag citrate for constipation and fleet enema if needed. cont senna two po daily and milk of mag and colace. 4. Anxiety disorder - cont clonazepam 2 mg one po qhs. Subjective Date patient seen: Jan 25, 2020 Time patient seen: 09:00 Constitutional: Reports: weakness HEENT: Reports: no symptoms Cardiovascular: Reports: no symptoms Respiratory: Reports: no symptoms Gastrointestinal/Abdominal: Reports: constipated Genitourinary: Reports: no symptoms Neurologic/Psychiatric: Reports: no symptoms Endocrine: Reports: no symptoms Hematologic/Lymphatic: Reports: no symptoms Allergies: Coded Allergies: No Known Allergies (Unverified , 01/19/20) Subjective He is post op day three for lt knee arthroplasty. his pain is is better controlled today. He ate breakfast. afebrile. no sob or chest pain. he is distended and constipated. Objective Last 24 Hour Vital Signs Date Time Temp Pulse Resp B/P (MAP) Pulse Ox O2 Delivery O2 Flow Rate FiO2 01/25/20 08:13 Room Air Room Air 01/25/20 08:00 98.5 87 20 137/85 (102) 97 01/25/20 04:00 99.6 82 18 141/90 (107) 94 01/25/20 00:00 98.8 76 19 123/68 (86) 95 01/24/20 22:00 98.7 01/24/20 21:00 Room Air Room Air 01/24/20 20:00 100.0 79 19 123/91 (102) 91 01/24/20 16:00 98.9 68 20 140/89 (106) 94 01/24/20 15:34 99.3 01/24/20 12:00 99.3 71 20 115/68 (84) 96 Intake and Output 01/24/20 01/25/20 19:00 07:00 Intake Total 1620 ml Output Total 400 ml Balance 1220 ml Intake Oral 720 ml IV Total 900 ml Output Urine Total 400 ml Laboratory Tests 01/25/20 04:55: White Blood Count 8.1, Red Blood Count 4.82, Hemoglobin 14.8, Hematocrit 44.0, Mean Corpuscular Volume 91, Mean Corpuscular Hemoglobin 30.7, Mean Corpuscular Hemoglobin Concent 33.7, Red Cell Distribution Width 11.7, Platelet Count 124L, Mean Platelet Volume 7.7, Neutrophils (%) (Auto) 83.9H, Lymphocytes (%) (Auto) 7.6L, Monocytes (%) (Auto) 7.7, Eosinophils (%) (Auto) 0.4, Basophils (%) (Auto ) 0.4, Sodium Level 137, Potassium Level 4.2, Chloride Level 106, Carbon Dioxide Level 27, Anion Gap 4L, Blood Urea Nitrogen 12, Creatinine 0.7, Estimat Glomerular Filtration Rate > 60, Glucose Level 145H, Calcium Level 8.1L Height (Feet): 5 Height (Inches): 6.54 Weight (Pounds): 195 General Appearance: no apparent distress, alert Neck: non-tender, supple Cardiovascular: normal rate, regular rhythm Respiratory/Chest: lungs clear, normal breath sounds Abdomen: non tender, soft Extremities: non-tender Edema: no edema noted Leg (L), no edema noted Leg (R) Neurologic: alert, responsive Skin: warm/dry Ajith Schumacher MD Jan 25, 2020 09:23
[2020-01-25] MEDS ORDERED: Magnesium Citrate Liq Btl ORAL SCH (10:30)
[2020-01-25 12:04] VITALS: BP 126/86
--- NOTE | 2020-01-25 12:40 | NUR ---
NURSE NOTES: changed surgical drsg with xeroform, 4x4 dry cover with ABD and secured with suresites. will cont to monitor.
[2020-01-25] MEDS ORDERED: Fleet's Enema 133ml RECTAL SCH (13:00)
[2020-01-25 16:00] VITALS: BP 120/78
--- NOTE | 2020-01-25 18:12 | NUR ---
NURSE NOTES: PATIENT ABLE TO MOVED BOWEL AFTER THE MAG CITRATE GIVEN. D/C THE ENEMA. SEEN BY PT. NO ACUTE RESP DISTRESS NOTED. WILL CONT TO MONITOR.
--- NOTE | 2020-01-25 18:56 | NUR ---
NURSE NOTES: PATIENT HAS A TEMP OF 101.2. COOLINGM EASURES RENDERED AND TYLENOL GIVEN PER MD ORDER. KEPT HOB ELEVATED NO SOB NOTED. WILL CONT TO MONITOR. Addendum: 01/25/20 at 1904 by KORI DUONG LVN LEFT VOICEMESSAGE TO DR GOMEZ REGARDING TEMP ABOVE. WILL CONT TO MONITOR.
--- NOTE | 2020-01-25 19:05 | NUR ---
NURSE HAND-OFF: Important Events on Shift:TEMP 101.2.TO RECHECK TEMP. Patient Status: WITH TEMP / S/P L TOTAL KNEE REPLACEMENT Diet: REG Pending Orders: Pending Results/Labs: Pending MD notification: Latest Vital Signs: Temperature 101.2 , Pulse 60 , B/P 120 /78 , Respiratory Rate 20 , O2 SAT 98 , Room Air, O2 Flow Rate 3.0 . Vital Sign Comment: Latest De La O Fall Score: 55 Fall Risk: High Risk Safety Measures: Call light Within Reach, Bed Alarm Zone 2, Side Rails Side Rails x3, Bed position Low and Locked. Fall Precautions: Yellow Socks Door Sign Patient Fall Education Report given to LATONYA.
--- NOTE | 2020-01-25 19:39 | NUR ---
NURSE NOTES: Received patient and report from ORLANDO Iraheta. Patient with no acute s/s of distress and no complaint of pain. IV site noted, clean dry and intact. Surgical dressing on left knee noted, clean dry and intact. Plan of care discussed.
[2020-01-25 20:00] VITALS: BP 134/87
[2020-01-26] VITALS: BP 102/65
[2020-01-26 04:00] VITALS: BP 132/80
[2020-01-26 05:25] LABS: BASOPHILS % (AUTO) 0.6 % (0.0-2.0); EOSINOPHILS % (AUTO) 1.9 % (0.0-3.0); HEMOGLOBIN 14.3 G/DL (14.2-18.0); LYMPHOCYTES % (AUTO) 12.3 % (20.0-45.0); MEAN CORPUSCULAR VOLUME 92 FL (80-99); MONOCYTES % (AUTO) 8.6 % (1.0-10.0); NEUTROPHILS % (AUTO) 76.5 % (45.0-75.0); PLATELET COUNT 123 K/UL (150-450); RED CELL DISTRIBUTION WIDTH 11.9 % (11.6-14.8); WHITE BLOOD COUNT 7.4 K/UL (4.8-10.8)
[2020-01-26 05:28] LABS: ANION GAP 6 mmol/L (5-15); BLOOD UREA NITROGEN 14 mg/dL (7-18); CALCIUM 7.9 MG/DL (8.5-10.1); CARBON DIOXIDE 30 MMOL/L (21-32); CHLORIDE 105 MMOL/L (98-107); CREATININE 0.8 MG/DL (0.55-1.30); POTASSIUM 4.1 MMOL/L (3.5-5.1); SODIUM 141 MMOL/L (136-145)
[2020-01-26] MEDS: HYDROcodone/Acetamin 5/325 tab ORAL PRN (06:17)
--- NOTE | 2020-01-26 07:13 | NUR ---
NURSE HAND-OFF: Important Events on Shift:pending dc to [facility] Patient Status: stable Diet: regular Pending Orders: NA Pending Results/Labs:NA Pending MD notification:NA Latest Vital Signs: Temperature 98.4 , Pulse 82 , B/P 132 /80 , Respiratory Rate 14 , O2 SAT 96 , Room Air, O2 Flow Rate 3.0 . Vital Sign Comment: NA Latest De La O Fall Score: 55 Fall Risk: High Risk Safety Measures: Call light Within Reach, Bed Alarm Zone 2, Side Rails Side Rails x3, Bed position Low and Locked. Fall Precautions: Yellow Socks Door Sign Patient Fall Education Report given to ORLANDO Rosenberg.
--- NOTE | 2020-01-26 07:30 | NUR ---
NURSE NOTES: Patient is in bed asleep. Stable. Breathing is even and unlabored. No visible signs of distress at this time. Patient is in bed in locked and lowest position with call light within reach. All safety measures provided. Will continue to monitor.
[2020-01-26 08:00] VITALS: BP 125/80
--- NOTE | 2020-01-26 08:26 | Orthopedic Progress Note ---
Orthopedic - Progress Note Subjective Symptoms: improved - ready for d/c Objective Laboratory Tests Test 01/26/20 04:50 White Blood Count 7.4 K/UL (4.8-10.8) Red Blood Count 4.70 M/UL (4.70-6.10) Hemoglobin 14.3 G/DL (14.2-18.0) Hematocrit 43.0 % (42.0-52.0) Mean Corpuscular Volume 92 FL (80-99) Mean Corpuscular Hemoglobin 30.4 PG (27.0-31.0) Mean Corpuscular Hemoglobin Concent 33.2 G/DL (32.0-36.0) Red Cell Distribution Width 11.9 % (11.6-14.8) Platelet Count 123 K/UL (150-450) L Mean Platelet Volume 6.9 FL (6.5-10.1) Neutrophils (%) (Auto) 76.5 % (45.0-75.0) H Lymphocytes (%) (Auto) 12.3 % (20.0-45.0) L Monocytes (%) (Auto) 8.6 % (1.0-10.0) Eosinophils (%) (Auto) 1.9 % (0.0-3.0) Basophils (%) (Auto) 0.6 % (0.0-2.0) Sodium Level 141 MMOL/L (136-145) Potassium Level 4.1 MMOL/L (3.5-5.1) Chloride Level 105 MMOL/L (98-107) Carbon Dioxide Level 30 MMOL/L (21-32) Anion Gap 6 mmol/L (5-15) Blood Urea Nitrogen 14 mg/dL (7-18) Creatinine 0.8 MG/DL (0.55-1.30) Estimat Glomerular Filtration Rate > 60 mL/min (>60) Glucose Level 112 MG/DL (74-106) H Calcium Level 7.9 MG/DL (8.5-10.1) L Last 24 Hour Vital Signs Date Time Temp Pulse Resp B/P (MAP) Pulse Ox O2 Delivery O2 Flow Rate FiO2 01/26/20 04:00 98.4 82 14 132/80 (97) 96 01/26/20 00:00 98.5 78 15 102/65 (77) 94 01/25/20 21:00 Room Air Room Air 01/25/20 20:00 98.5 97 18 134/87 (103) 98 01/25/20 19:25 98.5 01/25/20 16:00 98.5 60 20 120/78 (92) 98 01/25/20 12:04 98.0 85 20 126/86 (99) 94 Intake and Output 01/25/20 01/26/20 19:00 07:00 Intake Total 360 ml 240 ml Output Total 1000 ml Balance -640 ml 240 ml Intake Oral 360 ml 240 ml Output Urine Total 1000 ml # Voids 3 # Bowel Movements 1 2 Laboratory Tests Test 01/26/20 04:50 White Blood Count 7.4 K/UL (4.8-10.8) Red Blood Count 4.70 M/UL (4.70-6.10) Hemoglobin 14.3 G/DL (14.2-18.0) Hematocrit 43.0 % (42.0-52.0) Mean Corpuscular Volume 92 FL (80-99) Mean Corpuscular Hemoglobin 30.4 PG (27.0-31.0) Mean Corpuscular Hemoglobin Concent 33.2 G/DL (32.0-36.0) Red Cell Distribution Width 11.9 % (11.6-14.8) Platelet Count 123 K/UL (150-450) L Mean Platelet Volume 6.9 FL (6.5-10.1) Neutrophils (%) (Auto) 76.5 % (45.0-75.0) H Lymphocytes (%) (Auto) 12.3 % (20.0-45.0) L Monocytes (%) (Auto) 8.6 % (1.0-10.0) Eosinophils (%) (Auto) 1.9 % (0.0-3.0) Basophils (%) (Auto) 0.6 % (0.0-2.0) Sodium Level 141 MMOL/L (136-145) Potassium Level 4.1 MMOL/L (3.5-5.1) Chloride Level 105 MMOL/L (98-107) Carbon Dioxide Level 30 MMOL/L (21-32) Anion Gap 6 mmol/L (5-15) Blood Urea Nitrogen 14 mg/dL (7-18) Creatinine 0.8 MG/DL (0.55-1.30) Estimat Glomerular Filtration Rate > 60 mL/min (>60) Glucose Level 112 MG/DL (74-106) H Calcium Level 7.9 MG/DL (8.5-10.1) L Wound: clean, dry, intact Drains: none Neuro Status: normal Vascular Status: normal Assessment Post-op Diagnosis POD 3 left total knee arthroplasty Plan Plan: discharge to home Rosalind Timmons Jan 26, 2020 08:26
[2020-01-26] MEDS: Tamsulosin 0.4mg cap ORAL SCH (08:39)
[2020-01-26] MEDS: Docusate 100mg cap ORAL SCH ×2 (08:39→13:00)
[2020-01-26] MEDS: celeBREX 200mg Cap **SURGERY PATIENTS ONLY ORAL SCH (08:40)
[2020-01-26] MEDS: Sennosides 8.6mg tab ORAL SCH (08:40)
--- NOTE | 2020-01-26 08:59 | General Progress Note ---
Assessment/Plan Status: stable Assessment/Plan: 1. Osteoarthritis of left knee s/p Arthroplasty - cont pain management. D/C home today with home health. 2. BPH - cont flomax 0.4 mg one po qhs and proscar. 3. constipation - improved with mag citrate and enema. cont senna two po daily and milk of mag and colace at home. 4. Anxiety disorder - cont clonazepam 2 mg one po qhs prn. Subjective Date patient seen: Jan 26, 2020 Constitutional: Reports: no symptoms HEENT: Reports: no symptoms Cardiovascular: Reports: no symptoms Respiratory: Reports: no symptoms Gastrointestinal/Abdominal: Reports: no symptoms Genitourinary: Reports: no symptoms Neurologic/Psychiatric: Reports: no symptoms Endocrine: Reports: no symptoms Hematologic/Lymphatic: Reports: no symptoms Allergies: Coded Allergies: No Known Allergies (Unverified , 01/19/20) Subjective He is s/p lt knee arthroplasty and doing better. his pain is is well controlled and he wants to go home. He ate breakfast. afebrile. no sob or chest pain. he had bowel movement. Objective Last 24 Hour Vital Signs Date Time Temp Pulse Resp B/P (MAP) Pulse Ox O2 Delivery O2 Flow Rate FiO2 01/26/20 08:50 Room Air Room Air 01/26/20 08:00 98.8 93 16 125/80 (95) 93 01/26/20 04:00 98.4 82 14 132/80 (97) 96 01/26/20 00:00 98.5 78 15 102/65 (77) 94 01/25/20 21:00 Room Air Room Air 01/25/20 20:00 98.5 97 18 134/87 (103) 98 01/25/20 19:25 98.5 01/25/20 16:00 98.5 60 20 120/78 (92) 98 01/25/20 12:04 98.0 85 20 126/86 (99) 94 Intake and Output 01/25/20 01/26/20 19:00 07:00 Intake Total 360 ml 240 ml Output Total 1000 ml Balance -640 ml 240 ml Intake Oral 360 ml 240 ml Output Urine Total 1000 ml # Voids 3 # Bowel Movements 1 2 Laboratory Tests 01/26/20 04:50: White Blood Count 7.4, Red Blood Count 4.70, Hemoglobin 14.3, Hematocrit 43.0, Mean Corpuscular Volume 92, Mean Corpuscular Hemoglobin 30.4, Mean Corpuscular Hemoglobin Concent 33.2, Red Cell Distribution Width 11.9, Platelet Count 123L, Mean Platelet Volume 6.9, Neutrophils (%) (Auto) 76.5H, Lymphocytes (%) (Auto) 12.3L, Monocytes (%) (Auto) 8.6, Eosinophils (%) (Auto) 1.9, Basophils (%) (Auto ) 0.6, Sodium Level 141, Potassium Level 4.1, Chloride Level 105, Carbon Dioxide Level 30, Anion Gap 6, Blood Urea Nitrogen 14, Creatinine 0.8, Estimat Glomerular Filtration Rate > 60, Glucose Level 112H, Calcium Level 7.9L Height (Feet): 5 Height (Inches): 6.54 Weight (Pounds): 195 General Appearance: no apparent distress, alert EENT: normal ENT inspection Neck: non-tender, supple Cardiovascular: normal rate, regular rhythm Respiratory/Chest: lungs clear, normal breath sounds Abdomen: non tender, soft Extremities: non-tender Edema: no edema noted Leg (L), no edema noted Leg (R) Neurologic: alert, responsive Skin: warm/dry Ajith Schumacher MD Jan 26, 2020 08:59
--- NOTE | 2020-01-26 09:00 | NUR ---
NURSE NOTES: Patient's son notified of patient's discharge. All discharge paperwork complete. Patient assessed by Dr. Schumacher this morning prior to discharge. Patient's son communicated that he has to arrange for patient's pick up driver and will call RN when he has everything arranged.
[2020-01-26] MEDS: HYDROcodone/Acetamin 7.5/325 tab ORAL PRN (11:31)
--- NOTE | 2020-01-26 12:12 | NUR ---
DISCHARGE PLANNING: NOTE CALL RECEIVED FROM PTs JEREMIE T: [phone] REQUESTING [facility]. IS AGREEABLE TO DC PLAN. IMM REITERATED. MESSAGE LEFT FOR ANNABELLE RODGERS MAKING HER AWARE OF THE FAMILIES REQUEST SHE IS AGREEABLE VM LEFT FOR SB QUEZADA T: [phone] @ MD Mcbride OFFICE MAKING HIM AWARE OF THE HOME HEALTH CHANGES PT IS MCR CALL PLACED TO NEELAM AT [facility] SHE IS ACCEPTING THIS PT INTO SERVICE [facility] T: [phone] F:[phone]
--- NOTE | 2020-01-26 16:00 | NUR ---
NURSE NOTES: Patient discharged home as ordered. Stable. Denies pain or SOB. Surgical dressing c/d/i. No iV access. RN gave patient thorough discharge instructions. Patient's son knows to pick up man prescription from Dr. Schumacher. Patient has all belongings. Skin is c/d/i. Patient assisted into car by 2 staff members without incident.
== END 2020-01-26 16:05 | disposition home health service (06) | DRG 470 ==
LOC: SDSOVERFLO 06:07 → 3E 12:40
PROC: 0SRD0J9 Replacement of Left Knee Joint with Synthetic Substitute, Cemented, Open Approach (ICD-10-PCS; principal; 2020-01-23 07:30)
DX: M17.12 Unilateral primary osteoarthritis, left knee (principal); N40.0 Benign prostatic hyperplasia without lower urinary tract symptoms; K21.9 Gastro-esophageal reflux disease without esophagitis; F41.1 Generalized anxiety disorder; E55.9 Vitamin D deficiency, unspecified; K59.00 Constipation, unspecified
CPT/HCPCS: 36415; 80048; 85025; 86850; 86900; 86901; 87081; 94003; 94150; J2250; J2405; J2795; U0002